=== PATIENT | female | born 1945 | race American Indian/Alaskan Native ===

== ENCOUNTER 2017-06-30 12:47 | Emergency (ER) | payer MEDICARE ==
[2017-06-30 12:47] VITALS: BMI 26.9
[2017-06-30 12:54] VITALS: TEMP 97.8
--- NOTE | 2017-06-30 13:20 | ED PDOC ---
Arrival/HPI - General Chief Complaint: High Blood Pressure Time Seen by Provider: 06/30/17 13:05 Historian: Patient - History of Present Illness Narrative History of Present Illness (Text): 06/30/17 13:02 A 72 year old female, whose past medical history includes hypertension ( compliant with medications), and heart murmur, presents to the emergency department complaining of elevated blood pressure. Patient reports visiting Dr. Mcgarry (BAR POINTER) for checkup and was told blood pressure was high. Patient notes also experiencing chronic right arm pain and left fingertips tingling x 3 weeks. She states having seen Dr. 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 Patient has pain medication for symptoms. Patient denies any fever, chills, abdominal pain, nausea, headache, or any other complaints at this time. Also, patient mentions having difficulty sleeping due to symptoms for past 3 weeks. Denies any past medical history of diabetes. PMD: Dr. Jasso Pain Management: Dr. Patel BAR POINTER: Dr. Mcgarry Past Medical History - Provider Review Nursing Documentation Reviewed: Yes - Cardiac Hx Cardiac Disorders: Yes Hx Hypertension: Yes Hx Pacemaker: No - Hematological/Oncological Hx Blood Transfusions: No - Musculoskeletal/Rheumatological Hx Musculoskeletal Disorders: Yes Hx Arthritis: Yes (neck) - Psychiatric Hx Substance Use: No - Anesthesia Hx Anesthesia Reactions: (NEVER HAD GENERAL) Family/Social History - Physician Review Nursing Documentation Reviewed: Yes Family/Social History: No Known Family HX Smoking Status: Never Smoked Hx Alcohol Use: No Hx Substance Use: No Allergies/Home Meds Allergies/Adverse Reactions: Allergies No Known Allergies Allergy (Unverified 06/30/17 12:53) Home Medications: Home Meds Medication Instructions Recorded Confirmed Cholecalciferol (Vitamin D3) 500 unit PO DAILY 05/26/16 [Vitamin D3] Cod Liver Oil 1 cap PO DAILY 05/26/16 Garlic [Odor Free Garlic-X] 1 each PO DAILY 05/26/16 Losartan/Hydrochlorothiazide 1 tab PO DAILY 05/26/16 [Losartan-Hctz 100-25 mg Tab] Mv-Min/Folic/Vit K/Lycop/Coq10 1 tab PO DAILY 05/26/16 [Daily Multivitamin Capsule] [place]-3S/Dha/Epa/Fish Oil [Fish 1 each PO DAILY 05/26/16 Oil [place]-3 Softgel] amLODIPine [Norvasc] 10 mg PO DAILY 05/26/16 Review of Systems - Review of Systems Constitutional: absent: Fevers, Night Sweats Eyes: absent: Vision Changes Respiratory: absent: SOB, Cough, Sputum Cardiovascular: absent: Chest Pain, Palpitations Gastrointestinal: absent: Abdominal Pain, Constipation, Diarrhea, Nausea Genitourinary Female: absent: Urine Output Changes Musculoskeletal: Other (right arm pain) Skin: absent: Rash Neurological: Other (left fingertips tingling only). absent: Headache Psychiatric: absent: Anxiety Physical Exam Vital Signs Reviewed: Yes Vital Signs Temp Pulse Resp BP Pulse Ox 06/30/17 14:36 78 18 165/94 H 100 06/30/17 13:30 81 16 170/100 H 98 06/30/17 12:53 97.8 F 84 18 197/116 H 98 Temperature: Afebrile Blood Pressure: Hypertensive Pulse: Regular Respiratory Rate: Normal Appearance: Positive for: Well-Appearing Pain Distress: None Mental Status: Positive for: Alert and Oriented X 3 - Systems Exam Head: Present: Atraumatic, Normocephalic Pupils: Present: PERRL Extroacular Muscles: Present: EOMI Conjunctiva: Present: Normal Mouth: Present: Moist Mucous Membranes Neck: Present: Normal Range of Motion Respiratory/Chest: Present: Clear to Auscultation, Good Air Exchange. No: Respiratory Distress, Accessory Muscle Use Cardiovascular: Present: Regular Rate and Rhythm, Normal S1, S2. No: Murmurs Abdomen: No: Tenderness, Distention, Peritoneal Signs Upper Extremity: Present: Normal Inspection. No: Cyanosis, Edema Lower Extremity: Present: Normal Inspection. No: Edema Neurological: Present: GCS=15, CN II-XII Intact, Speech Normal Skin: Present: Warm, Dry, Normal Color. No: Rashes Psychiatric: Present: Alert, Oriented x 3, Normal Insight, Normal Concentration Medical Decision Making ED Course and Treatment: 06/30/17 13:16 Impression: 72 year old female with asymptomatic htn. Chronic unchanged symptoms related to arthritis in her neck being already managed by ortho. No weakness. No urinary or bowel issues. Normal physical exam. Plan: -- Chest X-ray -- Labs -- Reassess and disposition Progress Notes: 06/30/2017 13:51 Chest X-ray IMPRESSION: Minor linear scarring changes both lung bases. Dictator: Adolfo Stone MD 06/30/17 14:58 EKG shows SNR at 81bpm with LVH. Trop x 1 negative. Bun/creatinine WNL. BP spontaneously resolved. Spoke to Dr. Jasso. He is requesting addition of bystolic 5mg and will reevaluate patient in his poffice. - Lab Interpretations Lab Results: 06/30/17 13:30 06/30/17 13:48 Lab Results 06/30/17 13:48: Sodium 138, Potassium 4.0, Chloride 100, Carbon Dioxide 27, Anion Gap 15, BUN 11, Creatinine 0.7, Est GFR ( Amer) > 60, Est GFR (Non- Af Amer) > 60, Random Glucose 107, Calcium 10.0, Phosphorus 3.3, Magnesium 2.2, Total Bilirubin 0.5, AST 48 H, ALT 35, Alkaline Phosphatase 72, Total Creatine Kinase 496 H, CK-MB (CK-2) 3.4, CK-MB (CK-2) % Cancelled, Troponin I < 0.01, Total Protein 8.6 H, Albumin 5.0 H, Globulin 3.6, Albumin/Globulin Ratio 1.4 06/30/17 13:30: PT 11.3, INR 0.98, APTT 28.5 06/30/17 13:30: WBC 5.6, RBC 4.73, Hgb 12.8, Hct 38.3, MCV 81.0, MCH 27.1, MCHC 33.4, RDW 14.2, Plt Count 316, MPV 8.6, Gran % 63.9, Lymph % (Auto) 25.2, [place] % (Auto) 7.7 H, Eos % (Auto) 2.7, Baso % (Auto) 0.5, Gran # 3.55, Lymph # (Auto ) 1.4, [place] # (Auto) 0.4, Eos # (Auto) 0.2, Baso # (Auto) 0.03 - RAD Interpretation Radiology Orders: 06/30/17 13:07 CHEST PORTABLE [RAD] Stat - Scribe Statement The provider has reviewed the documentation as recorded by the Carlineibmarielos Schrader Provider Scribe Attestation: All medical record entries made by the Scribe were at my direction and personally dictated by me. I have reviewed the chart and agree that the record accurately reflects my personal performance of the history, physical exam, medical decision making, and the department course for this patient. I have also personally directed, reviewed, and agree with the discharge instructions and disposition. Disposition/Present on Arrival - Present on Arrival Any Indicators Present on Arrival: No History of DVT/PE: No History of Uncontrolled Diabetes: No Urinary Catheter: No History of Decub. Ulcer: No History Surgical Site Infection Following: None - Disposition Have Diagnosis and Disposition been Completed?: Yes Diagnosis: Hypertension, Neck arthritis Disposition: HOME/ ROUTINE Disposition Time: 14:59 Patient Plan: Discharge Condition: GOOD Discharge Instructions (ExitCare): High Blood Pressure in Adults, Controlling Your Blood Pressure Through Lifestyle Additional Instructions: Follow-up with Dr. Jasso within 2 days for further evaluation of hypertension. Return immediately with any worsening symptoms. Start bystolic Prescriptions: Nebivolol [Bystolic] 5 mg PO DAILY #30 tab Referrals: Franklin Jasso MD [Primary Care Provider] - Follow up with primary Forms: [employer] (Ugandan)
[2017-06-30 13:34] LABS: BASO # 0.03 K/mm3 (0.0-2.0); BASO % 0.5 % (0.0-3.0); EOS # 0.2 (0.0-0.7); EOS % 2.7 % (1.5-5.0); GRAN # 3.55 (1.4-6.5); GRAN % 63.9 % (50.0-68.0); HEMOGLOBIN 12.8 g/dL (12.0-16.0); LYMPH # 1.4 (1.2-3.4); LYMPH % 25.2 % (22.0-35.0); MEAN CORPUSCULAR HEMOGLOBIN 27.1 pg (25.0-35.0); MEAN CORPUSCULAR HGB CONC 33.4 g/dl (31.0-37.0); MEAN PLATELET VOLUME 8.6 fl (7.0-11.0); MONO # 0.4 (0.1-0.6); MONO % 7.7 % (1.0-6.0); RBC 4.73 10^6/uL (3.5-6.1); RED CELL DISTRIBUTION WIDTH 14.2 % (11.5-14.5); WHITE BLOOD COUNT 5.6 10^3/ul (4.5-11.0)
[2017-06-30 13:45] LABS: INR 0.98 (0.93-1.08); PARTIAL THROMBOPLASTIN TIME 28.5 Seconds (25.1-36.5); PROTHROMBIN TIME 11.3 SECONDS (9.4-12.5)
--- NOTE | 2017-06-30 13:53 | RAD ---
HISTORY: numbness COMPARISON: Comparison chest 07/13/2016. . FINDINGS: LUNGS: Mild linear scarring changes again seen both lung bases. . PLEURA: No significant pleural effusion identified, no pneumothorax apparent. CARDIOVASCULAR: Heart size unchanged. Aorta slightly ectatic and uncoiled. OSSEOUS STRUCTURES: No significant abnormalities. VISUALIZED UPPER ABDOMEN: Normal. OTHER FINDINGS: None. IMPRESSION: Minor linear scarring changes both lung bases.
[2017-06-30 14:12] LABS: ALB/GLOB RATIO 1.4 (1.1-1.8); ALT/SGPT 35 U/L (7-56); AST/SGOT 48 U/L (14-36); BLOOD UREA NITROGEN 11 mg/dL (7-21); GFR AFRICAN-AMERICAN > 60; GFR NON-AFRICAN AMERICAN > 60
[2017-06-30 14:23] LABS: TROPONIN I < 0.01 ng/mL
[2017-06-30 14:37] VITALS: BP 165/94; PULSE 78; RESP 18; O2SAT 100
[2017-06-30 14:46] LABS: CK-MB 3.4 ng/mL (0.0-3.6)
--- NOTE | 2017-07-01 08:41 | CARD ---
APPROVED REPORT EKG Measurement Heart [id number] <Conclusion> Normal sinus rhythm Minimal voltage criteria for LVH, may be normal variant.
== END 2017-06-30 17:42 | disposition home or self-care (01) ==
LOC: ED 12:47
DX: I10 Essential (primary) hypertension (principal); M47.812 Spondylosis without myelopathy or radiculopathy, cervical region

== ENCOUNTER 2018-03-20 08:22 | Day surgery (SDC) | payer MEDICARE ==
[2018-03-20 08:49] VITALS: O2SAT 100
[2018-03-20] MEDS ORDERED: Propofol 10 mg/ml Inj (20 ML) ONE (10:33)
[2018-03-20] MEDS ORDERED: Sodium Chloride 0.9% 1,000 ML IV SCH (11:15)
[2018-03-20 12:25] VITALS: BP 142/87; PULSE 66; RESP 16; TEMP 98.3
== END 2018-03-20 13:03 | disposition home or self-care (01) ==
LOC: ENDO 08:22
PROVIDERS: ATTEND Internal Medicine Gastroenterology
DX: Z12.11 Encounter for screening for malignant neoplasm of colon (principal); D12.2 Benign neoplasm of ascending colon; D12.8 Benign neoplasm of rectum; K57.30 Diverticulosis of large intestine without perforation or abscess without bleeding; K64.8 Other hemorrhoids; K59.09 Other constipation
CPT/HCPCS: 45385; 88305; J2001; J2704; J7030; J7040

== ENCOUNTER 2018-05-18 09:03 | Outpatient (CLI) | payer MEDICARE | END 2018-05-18 09:04 | disposition home or self-care (01) | LOC: RAD 09:03 | DX: R91.1 Solitary pulmonary nodule (principal) ==